=== PATIENT | male | born 1935 | race Caucasian/White ===

== ENCOUNTER 2017-04-16 14:53 | Emergency (ER) | payer MEDICARE, OTHER ==
[2017-04-16] MEDS ORDERED: Sodium Chloride 0.9% 10 ML Syringe FLUSH PRN (15:10)
[2017-04-16] MEDS ORDERED: Pantoprazole 40 MG Vial IVPUSH ONE (15:11)
[2017-04-16] MEDS ORDERED: Sodium Chloride 0.9% 1,000 ML IV ONE (15:11)
[2017-04-16] MEDS ORDERED: GI Cocktail Oral Solution 30 ML PO ONE (15:12)
--- NOTE | 2017-04-16 15:18 | EDM.PDOC ---
ED HPI GENERAL MEDICAL PROBLEM - General Chief Complaint: General Stated Complaint: NOT FEELING WELL Time Seen by Provider: 04/16/17 15:02 Source of Information: Reports: Patient, Family, RN, RN Notes Reviewed History Limitations: Reports: No Limitations - History of Present Illness INITIAL COMMENTS - FREE TEXT/NARRATIVE: Patient presents to the emergency room at [facility] complaining of epigastric pain that started around 1 PM this afternoon. The patient states that he was outside in the yard moving some logs when his symptoms began. The patient did eat around noon today. The patient thought his symptoms initially were indigestion so he did take one tums which did not make his symptoms any better. Patient denies any radiation of the pain. The patient denies any focal neurological deficit. The patient denies any shortness of breath. The patient states that he feels slightly nauseated however he has not vomited. Patient denies any diarrhea. No recent changes of any medications. No extensive cardiac history outside of a valve problem and a systolic heart murmur. Onset: Today Onset Date: 04/16/17 Onset Time: 13:00 Duration: Getting Worse, Waxing/Waning Location: Reports: Chest Quality: Reports: Pressure Severity: Mild Improves with: Reports: None Worsens with: Reports: None Context: Reports: Activity. Denies: Exercise, Sick Contact, Trauma Associated Symptoms: Reports: No Other Symptoms - Related Data Allergies Allergy/AdvReac Type Severity Reaction Status Date / Time aspirin Allergy TINGLING Verified 04/16/17 15:08 IN FACE tolmetin sodium Allergy Edema Verified 04/16/17 15:08 [From Tolectin] Home Meds: Home Meds Acetaminophen [Tylenol Arthritis Pain] 650 mg PO Q8H PRN 03/31/15 [History] Amitriptyline HCl 1 tab PO BEDTIME 03/31/15 [History] Ascorbate Calcium [Vitamin C] 500 mg PO DAILY 03/31/15 [History] Cyclobenzaprine [Flexeril] 10 mg PO BEDTIME PRN 03/31/15 [History] Dextrin [Fiber] 2 tbs PO DAILY 03/31/15 [History] Fenofibrate,Micronized [Fenofibrate] 1 cap PO DAILY 03/31/15 [History] Flaxseed [Flaxseed Oil] 2,000 mg PO DAILY 03/31/15 [History] Insulin Glarg,Human.Rec.Analog [LantUS] 65 units SUBCUT BEDTIME 03/31/15 [ History] Lisinopril 10 mg PO DAILY 03/31/15 [History] Lovastatin 1 tab PO DAILY 03/31/15 [History] Meclizine [Antivert] 25 mg PO Q6H PRN 03/31/15 [History] Multivitamin with Minerals [Multiple Vitamin] 1 tab PO DAILY 03/31/15 [History] Omeprazole 1 cap PO DAILY 03/31/15 [History] Triamcinolone Acetonide [Kenalog 0.1% Crm] 1 applic TOP BID PRN 03/31/15 [ History] Vardenafil HCl [Levitra] 5 mg PO DAILY PRN 03/31/15 [History] glipiZIDE [Glipizide] 1 tab PO BID 03/31/15 [History] metFORMIN [Glucophage XR] 1 tab PO BID 03/31/15 [History] Copper/Ginseng/Saw Palm/Zinc [Prostate Health Formula] 1 cap PO DAILY 04/01/15 [ History] [place]-3 Fatty Acids [[place]-3] 2,000 mg PO DAILY 04/01/15 [History] Past Medical History Gastrointestinal History: Reports: GERD Endocrine/Metabolic History: Reports: Diabetes, Type II Social & Family History - Tobacco Use Smoking Status *Q: Unknown Ever Smoked - Alcohol Use Days Per Week of Alcohol Use: 0 - Recreational Drug Use Recreational Drug Use: No Drug Use in Last 12 Months: No ED ROS GENERAL - Review of Systems Review Of Systems: See Below Constitutional: Denies: Fever, Chills, Weakness Respiratory: Denies: Shortness of Breath, Cough Cardiovascular: Reports: Chest Pain. Denies: Dyspnea on Exertion, Edema, Palpitations GI/Abdominal: Reports: Nausea, Other (heartburn symptoms). Denies: Abdominal Pain, Diarrhea, Vomiting Skin: Reports: No Symptoms Neurological: Reports: No Symptoms. Denies: Dizziness, Headache ED EXAM, GENERAL - Physical Exam Exam: See Below Exam Limited By: No Limitations General Appearance: Alert Respiratory/Chest: No Respiratory Distress, Lungs Clear, Normal Breath Sounds Cardiovascular: Regular Rate, Rhythm, No Edema, Systolic Murmur Peripheral Pulses: 2+: Radial (L), Radial (R) GI/Abdominal: Soft, Tender (Epigastric), Abnormal Bowel Sounds (Hypoactive) Extremities: Normal Inspection, No Pedal Edema Neurological: Alert, Oriented Skin Exam: Warm, Dry, Intact, Normal Color, No Rash EKG INTERPRETATION EKG Date: 04/16/17 Time: 14:57 Rhythm: NSR Rate (beats/min): 71 [place]: normal P-wave: present QRS: RBBB ST-T: normal QT: normal NV/PQ Interval: 0.20 Comparison: NA - no prior EKG EKG Interpretation Comments: Sinus Rhythm RBBB Course - Vital Signs Last Recorded V/S: Last Vital Signs Temp 36.8 C 04/16/17 14:53 Pulse 67 04/16/17 15:47 Resp 16 04/16/17 15:47 BP 155/63 H 04/16/17 15:47 Pulse Ox 97 04/16/17 15:47 - Orders/Labs/Meds Orders: Active Orders 24 hr Category Date Time Status EKG 12 Lead [EKG Documentation Completion] [RC] STAT Care 04/16/17 15:10 Active Chest 2V [CR] Stat Exams 04/16/17 15:09 Taken Sodium Chloride 0.9% [Saline Flush] Med 04/16/17 15:10 Active 10 ml FLUSH ASDIRECTED PRN Peripheral IV Insertion Adult [OM.PC] Routine Oth 04/16/17 15:10 Ordered Medication Orders Sodium Chloride (Saline Flush) 10 ml FLUSH ASDIRECTED PRN PRN Reason: Keep Vein Open Labs: Laboratory Tests 04/16/17 04/16/17 Range/Units 15:20 15:20 WBC 8.7 (4.0-10.0) x10^3/uL RBC 4.58 (4.5-6.0) x10^6/uL Hgb 13.1 L (14.0-18.0) g/dL Hct 38.3 L (40.0-52.0) % MCV 83.6 (78.0-93.0) fL MCH 28.6 (26.0-32.0) pg MCHC 34.2 (32.0-36.0) g/dL RDW Coeff of Thao 13.7 (10.0-15.0) % Plt Count 211 (130-400) x10^3/uL Neut % (Auto) 77.0 (50.0-80.0) % Lymph % (Auto) 15.2 L (25.0-50.0) % [place] % (Auto) 5.7 (2.0-11.0) % Eos % (Auto) 1.6 (0.0-4.0) % Baso % (Auto) 0.5 (0.2-1.2) % Sodium 139 (136-145) mmol/L Potassium 4.5 (3.5-5.1) mmol/L Chloride 103 (98-107) mmol/L Carbon Dioxide 24 (21-32) mmol/L BUN 15 (7-18) mg/dL Creatinine 1.2 (0.70-1.30) mg/dL Est Cr Clr Drug Dosing TNP Estimated GFR (MDRD) 58 Glucose 180 H (74-106) mg/dL Calcium 9.1 (8.5-10.1) mg/dL Corrected Calcium 9.10 (8.5-10.1) mg/dL Total Bilirubin 0.5 (0.2-1.0) mg/dL AST 56 H (15-37) U/L ALT 68 H (16-63) U/L Alkaline Phosphatase 44 L (46-116) U/L Creatine Kinase 114 (39-308) U/L Creatine Kinase Index 1.3 (0.0-4.0) % CK-MB (CK-2) 1.5 (0.0-3.6) ng/mL Troponin I 0.019 (<=0.056) ng/mL Total Protein 7.2 (6.4-8.2) g/dL Albumin 4.0 (3.4-5.0) g/dL Globulin 3.2 Albumin/Globulin Ratio 1.25 Amylase 17 L (25-115) U/L Lipase 123 (73-393) U/L Meds: Medications Generic Name Dose Route Start Last Admin Trade Name Freq PRN Reason Stop Dose Admin Sodium Chloride 10 ml 04/16/17 15:10 Saline Flush FLUSH ASDIRECTED PRN Keep Vein Open Discontinued Medications Generic Name Dose Route Start Last Admin Trade Name Freq PRN Reason Stop Dose Admin Al Hydroxide/Mg Hydroxide 30 ml 04/16/17 15:12 04/16/17 15:28 Gi Cocktail PO 04/16/17 15:13 30 ml ONETIME ONE Administration Sodium Chloride 1,000 mls @ 999 mls/hr 04/16/17 15:11 04/16/17 15:31 Normal Saline IV 04/16/17 16:11 999 mls/hr ONETIME ONE Administration Pantoprazole Sodium 40 mg 04/16/17 15:11 04/16/17 15:29 Protonix Iv IVPUSH 04/16/17 15:12 40 mg ONETIME ONE Administration Departure - Departure Time of Disposition: 16:26 Disposition: Home, Self-Care 01 Condition: good Clinical Impression: Atypical chest pain, Indigestion - Discharge Information Instructions: Nonspecific Chest Pain, Indigestion, [id number] Referrals: Renée Campbell PA [Primary Care Provider] - Forms: ED Department Discharge Additional Instructions: 1. Stay well hydrated and rest 2. Eat a bland diet for the next few days 3. See Sharron in the clinic when she is back - Problem List Review Problem List Initiated/Reviewed/Updated: Yes - My Orders Last 24 Hours: My Active Orders 04/16/17 15:09 Chest 2V [CR] Stat 04/16/17 15:10 EKG 12 Lead [EKG Documentation Completion] [RC] STAT Sodium Chloride 0.9% [Saline Flush] 10 ml FLUSH ASDIRECTED PRN Peripheral IV Insertion Adult [OM.PC] Routine - Assessment/Plan Last 24 Hours: My Active Orders 04/16/17 15:09 Chest 2V [CR] Stat 04/16/17 15:10 EKG 12 Lead [EKG Documentation Completion] [RC] STAT Sodium Chloride 0.9% [Saline Flush] 10 ml FLUSH ASDIRECTED PRN Peripheral IV Insertion Adult [OM.PC] Routine
[2017-04-16 15:51] VITALS: BP 155/63
[2017-04-16 16:04] LABS: CHLORIDE,CL 103 mmol/L (98-107); SODIUM,NA 139 mmol/L (136-145)
== END 2017-04-16 16:40 | disposition home or self-care (01) ==
LOC: VM.ED 14:53
DX: K30 Functional dyspepsia (principal); R07.89 Other chest pain; K21.9 Gastro-esophageal reflux disease without esophagitis; E11.9 Type 2 diabetes mellitus without complications; Z88.6 Allergy status to analgesic agent; Z88.8 Allergy status to other drugs, medicaments and biological substances; Z79.4 Long term (current) use of insulin; Z79.84 Long term (current) use of oral hypoglycemic drugs; Z79.899 Other long term (current) drug therapy
CPT/HCPCS: 36415; 71020; 80053; 82150; 82550; 82553; 83690; 84484; 85025; 93005; 96361; 96374; 99284; A9270; C9113; J7030

== ENCOUNTER 2021-03-10 10:06 | Day surgery (SDC) | payer MEDICARE, OTHER ==
--- OUTSIDE RECORDS SUMMARY | 2021-02-25 09:15 | XMSREPORT | Referral Summary ---
:[address] [facility] Address [address] [place] [address] [address] [place] [address] Care Team Providers Name Role Phone Kaia Hernandez PA-C Primary Care Provider Kaia Hernandez PA-C Attributed Provider Reason for Referral Transitions of Care (Routine) Status Reason Specialty Diagnoses / Referred By Referred To Procedures Contact Contact New Request Patient Diagnoses Problem with voice production Difficulty swallowing solids Karis Hernandez, Health, [facility], [facility] [address] [place] [id number] Phone: Reason for Visit Reason Comments Pre-Op Exam EDG Encounter Details Date Type Department Care Team Description 02/24/2021 Office Visit [facility] Karis Hernandez, Problem with voice production (Primary Dx); [facility] Difficulty swallowing solids [address] [place] [address] [place] [address] Allergies Active Allergy Reactions Severity Noted Date Comments Aspirin Other (Specify in Comments) 10/24/2012 tingling of face Tolmetin Sodium Other (Specify in Comments) 10/24/2012 edema generalized documented as of this encounter (statuses as of 02/24/2021) Medications Medication Sig Dispensed Refills Start Date End Date Status neomycin-polymyxin B 2 DROPS BOTH EARS 0 Active (NEOSPORIN ) SOLN NEEDED Blood Glucose USE NEEDED TO 1 each 6 11/26/2015 Active Calibration CALIBRATE (GLUCOCARD 01 GLUCCOCARD MACHINE CONTROL) NORMAL SOLN DX: E11.9 easytest lancets 1 each 2 times a 100 each 12 03/20/2017 Active MISCIndications: day Strips and Type 2 diabetes lancets mellitus without complication, with long-term current use of insulin ([facility]) lidocaine (LIDODERM) Apply topically 1 15 patch 3 04/18/2018 Active 5% patchIndications: time per day Chronic right Patches may be left shoulder pain on for up 12 hours in a 24 hour period. cyanocobalamin Take 1 tablet 90 tablet 1 09/18/2019 Active (VITAMIN B-12) 1000 (1,000 mcg) by mcg mouth 1 time per tabletIndications: day Vitamin B12 deficiency vitamin D3, Take 1 capsule 90 capsule 1 09/18/2019 A ctive cholecalciferol, (1,000 Units) by 1000 unit mouth 1 time per capsuleIndications: day Vitamin D deficiency BD VEO INSULIN DX: E11.9 USE TO 100 syringe 2 06/11/2020 Active SYRINGE U/F 31G x INJECT INSULIN ONCE " 1 DAILY mLIndications: Type 2 diabetes mellitus with complication, with long-term current use of insulin ([facility]) triamcinolone APPLY TO AFFECTED 80 g 2 09/24/2020 Active acetonide AREA EVERY 12 HOURS (KENALOG,ARISTOCORT) NEEDED FOR RASH 0.1 % creamIndications: Eczema, unspecified type lisinopril Take 1 tablet (20 90 tablet 3 10/20/2020 Active (PRINIVIL, ZESTRIL) mg) by mouth 1 time 20 mg per day tabletIndications: Essential hypertension, Type 2 diabetes mellitus with microalbuminuria, with long-term current use of insulin ([facility]) lovastatin (MEVACOR) Take 1 tablet (40 90 tablet 3 10/20/2020 Active 40 mg mg) by mouth 1 time tabletIndications: per day Pure hypercholesterolemia , Type 2 diabetes mellitus with microalbuminuria, with long-term current use of insulin ([facility]) glipiZIDE Take 1 tablet (10 180 tablet 0 10/20/2020 Active (GLUCOTROL) 10 mg mg) by mouth 2 tabletIndications: times a day Type 2 diabetes mellitus with microalbuminuria, with long-term current use of insulin ([facility]) metFORMIN TAKE 1 TABLET BY 180 tablet 3 10/20/2020 A ctive (GLUCOPHAGE XR) 750 MOUTH TWO TIMES A MG extended release DAY tabletIndications: Type 2 diabetes mellitus with microalbuminuria, with long-term current use of insulin (HCC) oxybutynin Take 1 tablet (10 90 tablet 3 10/20/2020 Active (DITROPAN-XL) 10 mg mg) by mouth 1 time SR tablet (24 per day hr)Indications: Urinary urgency cholestyramine TAKE 1 PACKET (4 G) 180 packet 3 10/20/2020 Active (QUESTRAN) 4 gm BY MOUTH 2 TIMES A packetIndications: DAY WITH MEALS S/P laparoscopic cholecystectomy cetirizine (ZYRTEC) Take 1 tablet (10 30 tablet 0 11/10/2020 Active 10 mg mg) by mouth every tabletIndications: night at bedtime Problem with voice production fluticasone SPRAY 1 SPRAY INTO 16 g 2 12/14/2020 Active (FLONASE) 50 EACH NOSTRIL 2 mcg/spray nasal TIMES A DAY sprayIndications: Problem with voice production insulin detemir Inject 50 Units 45 mL 0 01/26/2021 Active (LEVEMIR) subcutaneously subcutaneous every night at injection bedtime (vial)Indications: Type 2 diabetes mellitus with microalbuminuria, with long-term current use of insulin (HCC) documented as of this encounter (statuses as of 02/24/2021) Active Problems Problem Noted Date Nonrheumatic aortic valve stenosis 05/04/2020 Diabetic peripheral neuropathy 08/14/2013 Plantar fascial fibromatosis 04/06/2004 Type 2 diabetes mellitus without complication, with lo ng-term current use 05/15/2003 of insulin Vitiligo 05/15/2003 Contact dermatitis and other eczema, due to unspecifie d cause 05/15/2003 Pure hypercholesterolemia 05/15/2003 Benign prostatic hypertrophy 05/15/2003 Essential hypertension 05/15/2003 Esophageal reflux 05/15/2003 Tricuspid valve regurgitation Mitral valve regurgitation documented as of this encounter (statuses as of 02/24/2021) Immunizations Name Administration Dates Next Due FLU VACCINE HIGH DOSE 65YR+(Fluzone) 07/20/2020, 08/11/2019, 08/06/2018, 08/17/2017, 09/08/2015, 09/08/2015, 08/11/2014, 08/11/2014, 08/12/2013, 08/24/2011 FLU VACCINE SINGLE DOSE 08/29/2016 0.5mL(6MO+Fluzone/Flulaval/Fluarix/3YR +Afluria) H1N1 Vaccine 11/17/2009 Influenza Vaccine,unspecified 08/18/2010, 07/20/2009, 2007, 09/27/2004 Pneumococcal Conj PCV13 03/22/2015 Pneumococcal Polysaccharide PPSV23 08/24/2011, 10/21/2010, 1 11/08/2004 TDAP 03/20/2017 Td(adult)preservative free 09/28/2006 Zoster Live(Zostavax) 03/10/2010 Zoster Recombinant (Shingrix) 06/16/2020, 12/30/2019 documented as of this encounter Social History Tobacco Use Types Packs/Day Years Used Date Former Smoker 1 Quit: 11/05/18 80 Smokeless Tobacco: Never Used Alcohol Use Drinks/Week oz/Week Comments No Social Isolation Answer Date Recorded In a typical week, how many times do you Twice a week 05/04/2020 talk on the phone with family, friends, or neighbors? How often do you get together with friends Once a week 05/04/2020 or relatives? How often do you attend worship or rastafarian More than 4 time s per year 05/04/2020 services? Do you belong to any clubs or organizations No 05/04/2020 such as worship groups, unions, fraternal or athletic groups, or school groups? How often do you attend meetings of the Never 05/04/2020 clubs or organizations you belong to? Are you now , , , 05/04/2020 , never or living with a partner? Physical Activity Answer Date Recorded On average, how many days per week do you engage in moderate to 7 days 05/04/2020 strenuous exercise (like walking fast, running, jogging, dancing, swimming, biking, or other activities that cause a light or heavy sweat)? On average, how many minutes do you engage in exercise at th is 30 min 05/04/2020 level? Stress Answer Date Recorded Do you feel stress - tense, restless, nervous, or anxious, N ot at all 05/04/2020 or unable to sleep at night because your mind is troubled all the time - these days? Financial Resource Strain Answer Date Recorded How hard is it for you to pay for the very basics like Not h amrit at all 05/04/2020 food, housing, medical care, and heating? Intimate Partner Violence Answer Date Recorded Within the last year, have you been afraid of your partner o r No 05/04/2020 ex-partner? Within the last year, have you been humiliated or emotionall y No 05/04/2020 abused in other ways by your partner or ex-partner? Within the last year, have you been kicked, hit, slapped, or No 05/04/2020 otherwise physically hurt by your partner or ex-partner? Within the last year, have you been raped or forced to have any No 05/04/2020 kind of sexual activity by your partner or ex-partner? Food Insecurity Answer Date Recorded Within the past 12 months, you worried that your food would Never true 05/04/2020 run out before you got money to buy more. Within the past 12 months, the food you bought just didn't N ever true 05/04/2020 last and you didn't have money to get more. Transportation Needs Answer Date Recorded In the past 12 months, has lack of transportation kept you f rom No 04/22/2019 medical appointments or from getting medications? In the past 12 months, has lack of transportation kept you f rom No 04/22/2019 meetings, work, or getting things needed for daily living? Sex Assigned at Date Recorded Not on file documented as of this encounter Last Filed Vital Signs Vital Sign Reading Time Taken Comments Blood Pressure 136/74 02/24/2021 1:58 PM CDT Pulse 63 02/24/2021 1:58 PM CDT Temperature 36 C (96.8 F) 02/24/2021 1:58 PM CDT Respiratory Rate 16 02/24/2021 1:58 PM CDT Oxygen Saturation 97% 02/24/2021 1:58 PM CDT Inhaled Oxygen Concentration - - Weight 86.3 kg (190 lb 3.2 oz) 02/24/2021 1:58 PM CDT Height 175.3 cm (5' 9") 02/24/2021 1:58 PM CDT Body Mass Index 28.09 02/24/2021 1:58 PM CDT documented in this encounter Functional Status Functional Status Response Date of Assessment Is the person deaf or does he/she have serious difficulty No 07/13/2017 hearing? Is this person blind or does he/she have difficulty No 07/13/2017 seeing even when wearing glasses? Do you have difficulty with walking, balance, climbing No 05/04/2020 stairs, or had a fall in the last 3 months? documented as of this encounter Patient Instructions Patient InstructionsKaris Hernandez PA-C - 02/24/2021 2:13 PM CDTI want you to restart omeprazole and stay on this until further notice. Continue taking your allergy pill as well. You can use your flonase as needed for nasal drainage. When you are feeling particularly fatigued, I'd encourage you to check your sugar and ensure this isn't too high or too low. It is normal to nap throughout the nap, especially if you are only getting 5-6 hours of sleep at night. Sleep is important for brain health. documented in this encounter Plan of Treatment Name Type Priority Associated Diagnoses Order S chedule CLINIC REFERRAL Referral Routine Problem with voice Ordere d: 02/24/2021 ENDOSCOPY NON ONE CHART producti on Difficulty swallowing solids documented as of this encounter Visit Diagnoses Diagnosis Problem with voice production - Primary Problems with voice production Difficulty swallowing solids Dysphagia, unspecified documented in this encounter
[~2021-03-10 10:06] MED LIST: Lactated Ringers 1,000 ML IV SCH
[2021-03-10] MEDS ORDERED: fentaNYL 100 MCG/2 ML SDV ONE (10:58)
[2021-03-10] MEDS ORDERED: Propofol 200 MG/20 ML SDV ONE (10:58)
[2021-03-10 13:05] VITALS: PULSE 71
[2021-03-10 13:19] VITALS: BP 156/68
--- NOTE | 2021-03-11 10:44 | OR ---
SURGERY DATE: 03/10/2021. REFERRING PROVIDER: Karis Hernandez. PRE-OPERATIVE DIAGNOSES: 1. Dysphagia to the throat area. 2. Weak voice/hoarseness, chronic. The patient is on omeprazole 20 mg daily and states that it does help when he takes it. However, it will go off for 2 weeks at a time. No tobacco or alcohol use noted. POST-OPERATIVE DIAGNOSIS: Normal esophagogastroduodenoscopy. Antral biopsy x2 bites taken using cold forceps to check for Helicobacter pylori. PROCEDURE: Esophagogastroduodenoscopy with cold biopsy x1 site using cold forceps (antrum). SURGEON: Ammon Redd M.D. ANESTHESIA: Monitored anesthesia care. Toby is an 86-year-old male who was brought to the endoscope suite after discussion of risks and benefits (including but not limited to reaction to medication, bleeding, infection, aspiration, perforation). Informed consent was obtained for monitored anesthesia care and esophagogastroduodenoscopy along with possible biopsy and/or dilatation. Pre-procedure exam including oral cavity was unremarkable. IV, oxygen, and monitors were placed. Patient was placed in the left lateral position and sedation was administered. A bite block was placed gently and scope lightly lubricated and passed through the bite block and over the tongue. Hypopharynx and vocal cords were visualized and unremarkable. Scope was passed through the cricopharynx and into the esophagus. The scope was then passed through the distal esophagus and the GE junction was visualized and photographed. The GE junction was unremarkable. Vocal cords were visualized and unremarkable. The scope was advanced into the stomach and gastric castelan was suctioned. Pylorus was identified and intubated and then the scope was advanced to the third portion of the duodenum. The second and third portions of the duodenum were unremarkable. The duodenal bulb was visualized and unremarkable. The scope was brought back into the stomach. The pylorus and the antrum were unremarkable. Cold biopsies for H pylori and path were obtained from the antrum. Cold biopsy x2 bites was taken from this area to check for H. pylori and sent for path. The scope was retroflexed to visualize the angularis, fundus, body, and cardia. These were unremarkable. The stomach was desufflated of air and then the scope was slowly withdrawn, and the esophagus was closely visualized during withdrawal all the way into the posterior pharynx and this was unremarkable. There were no strictures, rings, or masses. The patient tolerated the procedure well and went to recovery in stable condition. The patient was monitored until at baseline status. Findings and discharge instructions were reviewed and the patient was discharged in good condition. COMPLICATIONS: None. TOTAL TIME: 8 minutes. ESTIMATED BLOOD LOSS: Less than 1 mL. RECOMMENDATIONS/FOLLOW-UP: We will send results of antral biopsies once they return. If symptoms improved on omeprazole 20 mg daily, can continue taking this. If he is still having ongoing issues with his weak voice/voice hoarseness, I would consider ENT evaluation. I would like to kindly thank Karis Hernandez for this referral. DMB: 03/10/2021 14:28:23 MODL: 03/10/2021 19:42:43 /[id number]
== END 2021-03-10 14:15 | disposition home or self-care (01) ==
LOC: VM.SDS 10:06
PROVIDERS: ATTEND Family Medicine
DX: K29.50 Unspecified chronic gastritis without bleeding (principal); K31.89 Other diseases of stomach and duodenum; I78.1 Nevus, non-neoplastic; I10 Essential (primary) hypertension; E78.00 Pure hypercholesterolemia, unspecified; E11.42 Type 2 diabetes mellitus with diabetic polyneuropathy; Z88.8 Allergy status to other drugs, medicaments and biological substances; Z79.899 Other long term (current) drug therapy; Z86.010 Personal history of colon polyps
CPT/HCPCS: 00731; 82947; 88305; 88342; J2704; J3010; J7120

== ENCOUNTER 2023-02-17 13:55 | Emergency (ER) | payer MEDICARE, OTHER ==
[2023-02-17 14:42] LABS: CHLORIDE,CL 99 mmol/L (98-107); SODIUM,NA 134 mmol/L (136-145)
[2023-02-17 14:43] LABS: ANION GAP 12.3 mmol/L (5-15); ESTIMATED GFR 83 mL/min (>=60)
[2023-02-18 08:29] VITALS: BP 192/62; PULSE 56
== END 2023-02-17 15:50 | disposition home or self-care (01) ==
LOC: VM.ED 13:55
DX: R42 Dizziness and giddiness (principal); E78.00 Pure hypercholesterolemia, unspecified; I10 Essential (primary) hypertension; K21.9 Gastro-esophageal reflux disease without esophagitis; E11.40 Type 2 diabetes mellitus with diabetic neuropathy, unspecified; Z79.4 Long term (current) use of insulin; Z88.6 Allergy status to analgesic agent; Z88.8 Allergy status to other drugs, medicaments and biological substances; Z79.82 Long term (current) use of aspirin; Z79.899 Other long term (current) drug therapy
CPT/HCPCS: 70450; 71045; 80053; 81001; 82550; 82947; 83605; 83615; 84484; 85025; 86140; 93005; 93010; 99285

== ENCOUNTER 2024-06-28 12:37 | Emergency (ER) | payer MEDICARE, OTHER ==
[2024-06-28 12:55] VITALS: BP 167/52; PULSE 60
[2024-06-28 13:13] LABS: BASOPHILS ABSOLUTE AUTO 0.1 x10^3/uL (0.0-0.2); BASOPHILS PERCENT AUTO 0.7 % (0.2-1.2); EOSINOPHILS ABSOLUTE AUTO 0.3 x10^3/uL (0.0-0.5); EOSINOPHILS PERCENT AUTO 3.1 % (0.0-4.0); HEMATOCRIT 30.6 % (40.0-52.0); HEMOGLOBIN 10.2 g/dL (14.0-18.0); IMMATURE GRAN ABSOLUTE AUTO 0.05 x10^3/uL (0.00-0.07); LYMPHOCYTES ABSOLUTE AUTO 1.6 x10^3/uL (1.0-4.8); LYMPHOCYTES PERCENT AUTO 19.2 % (25.0-50.0); MEAN CORPUSCULAR HEMOGLOBIN 27.7 pg (26.0-32.0); MEAN CORPUSCULAR HGB CONC 33.3 g/dL (32.0-36.0); MEAN CORPUSCULAR VOLUME 83.2 fL (78.0-93.0); MONOCYTES ABSOLUTE AUTO 0.5 x10^3/uL (0.0-0.8); MONOCYTES PERCENT AUTO 6.3 % (2.0-11.0); NEUTROPHILS ABSOLUTE AUTO 5.9 x10^3/uL (1.8-7.7); NEUTROPHILS PERCENT AUTO 70.1 % (50.0-80.0); PLATELET COUNT,PLT 247 x10^3/uL (130-400); RED BLOOD CELL COUNT 3.68 x10^6/uL (4.5-6.0); WHITE BLOOD CELL COUNT,WBC 8.4 x10^3/uL (4.0-10.0)
[2024-06-28 13:29] LABS: APPEARANCE,URINE CLEAR (CLEAR); BILIRUBIN,URINE NEGATIVE (NEGATIVE); COLOR,URINE YELLOW (YELLOW); GLUCOSE,URINE NEGATIVE (NEGATIVE); KETONES,URINE NEGATIVE (NEGATIVE); LEUKOCYTE ESTERASE,URINE NEGATIVE (NEGATIVE); NITRITE,URINE NEGATIVE (NEGATIVE); OCCULT BLOOD,URINE NEGATIVE (NEGATIVE); PROTEIN,URINE 30 mg/dL (NEGATIVE); UROBILINOGEN,URINE 0.2 EU/dL (0.2)
[2024-06-28 13:30] LABS: CORONAVIRUS COVID-19 NAA NEGATIVE (NEGATIVE); INFLUENZA A NAA NEGATIVE (NEGATIVE); INFLUENZA B NAA NEGATIVE (NEGATIVE); RESPIRATORY SYNCYTIAL VIR NAA NEGATIVE (NEGATIVE)
[2024-06-28 13:35] LABS: BACTERIA,URINE NOT SEEN /HPF (NOT SEEN); HYALINE CASTS,URINE RARE; MUCUS,URINE NOT SEEN /LPF (NOT SEEN); RBC,URINE 0-5 /HPF (NOT SEEN); SQUAMOUS EPITHELIAL CELLS,UR RARE /HPF (NOT SEEN); WBC,URINE 0-5 /HPF (NOT SEEN)
[2024-06-28 13:38] LABS: ALBUMIN 3.5 g/dL (3.4-5.0); BILIRUBIN TOTAL 0.3 mg/dL (0.2-1.0); CALCIUM 8.9 mg/dL (8.5-10.1); EST CRCL DRUG DOSING (CG) 52.72 mL/min; POTASSIUM,K 4.5 mmol/L (3.5-5.1)
[2024-06-28 13:42] LABS: ANION GAP 17.5 mmol/L (5-15)
== END 2024-06-28 13:58 | disposition home or self-care (01) ==
LOC: SUPCPDRO 12:37 → VM.ED 12:37
DX: M79.601 Pain in right arm (principal); M79.602 Pain in left arm; R53.81 Other malaise; I10 Essential (primary) hypertension; E78.00 Pure hypercholesterolemia, unspecified; E11.9 Type 2 diabetes mellitus without complications; Z88.8 Allergy status to other drugs, medicaments and biological substances; Z79.82 Long term (current) use of aspirin; Z79.899 Other long term (current) drug therapy; Z90.49 Acquired absence of other specified parts of digestive tract
CPT/HCPCS: 0241U; 36415; 80053; 81001; 83690; 84484; 85025; 93005; 93010; 99284; 99285